=== PATIENT | male | born 1945 | race Caucasian/White ===

== ENCOUNTER 2018-07-25 11:22 | Inpatient (IN) | payer OTHER ==
[~2018-07-25] VITALS: Ht 175.3 cm; Wt 77.1 kg
--- NOTE | ~2018-07-25 | CON ---
[address] [address] CONSULTATION Name: ZOYA GUERRERO JR Room: [address] IN .R.#: [id number] Admission: 07/25/18 Attend Phys: George Wick Discharge: 07/26/18 Date of : 47 Report #: [id number] THIS REPORT FOR: //name// CC: Cali Greenberg DATE OF SERVICE: 07/26/2018 HISTORY OF PRESENT ILLNESS: This is a very pleasant 73-year-old male, with past medical history significant for gastroesophageal reflux disease who presents with nausea and vomiting. The patient reports that he had been suffering from an upper respiratory tract infection for the last several days and in order to control it, took a combination of Robitussin and Sudafed. The patient reports that following taking the medications, he began experiencing epigastric abdominal cramps followed by nausea and vomiting. The patient appears to have had 3-4 episodes of emesis prior to presentation to the hospital. The vomitus mostly consisted of food and ingested material with some bile. The patient denies noticing any blood in his vomit. Since his presentation to the hospital, he has not had any vomiting and his nausea has subsided. Additionally, the patient also reports that he has not passed any stools in the last 48 hours. The patient denies any symptoms at this time such as epigastric abdominal pain, nausea, vomiting, fevers, chills, difficulty swallowing or weight loss. PAST MEDICAL HISTORY: Significant for gastroesophageal reflux disease. PAST SURGICAL HISTORY: None. FAMILY HISTORY: There is no family history significant for esophageal, gastric or colorectal cancer. SOCIAL HISTORY: The patient denies smoking, alcohol or recreational drug use. REVIEW OF SYSTEMS: A comprehensive 10-point review of systems is negative except for what is mentioned here. PHYSICAL EXAMINATION: VITAL SIGNS: Temperature 36.2, pulse 69, respirations 18, blood pressure 124/82. HEENT: Pupils equal, round, reactive to light and accommodation. Mucous membranes are moist. There is no congestion. LUNGS: Clear to auscultation bilaterally. CARDIOVASCULAR: Rate and rhythm regular, S1, S2 present. ABDOMEN: Soft. There is no distention, guarding or rigidity. Bowel sounds are present. EXTREMITIES: Warm and well perfused. [place] [address] CONSULTATION Name: ZOYA GUERRERO JR Room: [address]#: [id number] Admission: 07/25/18 Attend Phys: George Wick Discharge: 07/26/18 Date of : 47 Report #: [id number] LABORATORY DATA: Hemoglobin 14.3, hematocrit 41.7, platelet count 221, WBC count 7.3. Sodium 140, potassium 4.4, chloride 105, bicarbonate 27, BUN 12, creatinine 1.1. Abdomen and pelvis CT demonstrates a 1.8 cm left renal cortical cyst. Lumbar degenerative facet joint arthropathy. ASSESSMENT AND PLAN: A pleasant 73-year-old male who is presenting with self-limited episode of nausea and vomiting following a 3-4 day course of upper respiratory tract infection. The patient's symptoms are completely resolved at this point and therefore, I will not seek any endoscopic evaluation. His symptoms may be related to medication or related to the upper respiratory tract infection itself. The patient will call us if his symptoms worsen. Otherwise, no further intervention is needed. By: [id number] Howell MD /nt
[2018-07-25 11:28] VITALS: BP 150/97
[2018-07-25 12:01] LABS: ABSOLUTE BASOPHILS 0.1 thou/uL (0.0-0.2); ABSOLUTE EOSINOPHILS 0.1 thou/uL (0.0-0.7); ABSOLUTE LYMPHOCYTES 1.2 thou/uL (0.8-5.3); ABSOLUTE MONOCYTES 0.5 thou/uL (0.0-1.2); ABSOLUTE NEUTROPHILS 5.4 thou/uL (1.6-8.1); BASOPHILS 0.8 %; HEMATOCRIT 43.3 % (42.0-52.0); HEMOGLOBIN 14.9 gm/dL (14.0-18.0); LYMPHOCYTES 16.1 %; MCH 30.9 pg (26.0-34.0); MCHC 34.4 g/dL (28.0-37.0); MCV 89.7 fL (80.0-100.0); MONOCYTES 6.5 %; MPV 8.4 fl. (7.2-11.1); NUCLEATED RBCS 0 /100WBC; PLATELET COUNT* 218 thou/uL (150-400); POLYS 75.6 %; RBC 4.83 mil/uL (4.50-6.00); RDW-CV 13.2 % (10.5-14.5); WBC 7.1 thou/uL (4.0-11.0)
[2018-07-25 12:14] LABS: ANION GAP 12 mmol/L (7-16); BUN 13 mg/dL (7-18); CALCIUM 9.2 mg/dL (8.5-10.1); CHLORIDE 100 mmol/L (98-107); CO2 26 mmol/L (21-32); GLUCOSE 131 mg/dL (70-99); POTASSIUM 3.8 mmol/L (3.5-5.1); SODIUM 138 mmol/L (136-145)
[2018-07-25 12:21] LABS: ALBUMIN 3.3 g/dL (3.4-5.0); ALKALINE PHOSPHATASE 76 U/L (46-116); LIPASE 84 U/L (73-393); SGOT 15 U/L (15-37); SGPT 19 U/L (30-65); TOTAL BILIRUBIN 0.7 mg/dL (<0.1-1.0); TOTAL PROTEIN 7.5 g/dL (6.4-8.2); TROPONIN-I LEVEL <0.06 ng/mL (<0.06)
[2018-07-25 12:43] LABS: URINE BILIRUBIN NEGATIVE (Negative); URINE BLOOD NEGATIVE (Negative); URINE CLARITY CLEAR; URINE COLOR YELLOW; URINE GLUCOSE-RANDOM NEGATIVE (Negative); URINE KETONES TRACE (Negative); URINE LEUKOCYTES-REFLEX NEGATIVE (Negative); URINE NITRITE-REFLEX NEGATIVE (Negative); URINE PROTEIN NEGATIVE (Negative); URINE SPECIFIC GRAVITY 1.015 (1.005-1.030); URINE UROBILINOGEN 0.2 E.U./dl (0.2-1.0)
[2018-07-25 14:40] VITALS: BP 147/95
--- NOTE | 2018-07-25 15:00 | NUR ---
PATIENT ARRIVED TO UNIT AT 1435. ALERT AND ORIENTED X 4. VITAL SIGNS STABLE ON ROOM AIR. UP AD SHAHZAD. AFEBRILE. IV PATENT AND SALINE LOCKED. ORIENTED PATIENT TO ROOM. CALL LIGHT WITHIN REACH. NURSING WILL CONTINUE TO MONITOR.
[2018-07-25 15:01] VITALS: BP 138/85
--- NOTE | 2018-07-25 17:37 | NUR ---
PATIENT ALERT AND ORIENTED X 4. VITAL SIGNS STABLE ON ROOM AIR. AFEBRILE. UP AD SHAHZAD IN ROOM. IV PATENT WITH FLUIDS INFUSING. DENIES PAIN. NAUSEA BEING MANAGED WITH IV MEDICATION. HOURLY ROUNDS MAINTAINED SINCE PATIENT ARRIVED TO UNIT. CALL LIGHT WITHIN REACH. NURSING WILL CONTINUE TO MONITOR.
[2018-07-25 20:30] VITALS: BP 136/84
[2018-07-26 04:08] LABS: ABSOLUTE EOSINOPHILS 0.2 thou/uL (0.0-0.7); ABSOLUTE LYMPHOCYTES 1.5 thou/uL (0.8-5.3); ABSOLUTE MONOCYTES 0.8 thou/uL (0.0-1.2); ABSOLUTE NEUTROPHILS 4.7 thou/uL (1.6-8.1); BASOPHILS 0.7 %; EOSINOPHILS 2.9 %; HEMATOCRIT 41.7 % (42.0-52.0); HEMOGLOBIN 14.3 gm/dL (14.0-18.0); MCH 30.9 pg (26.0-34.0); MCHC 34.4 g/dL (28.0-37.0); MCV 89.8 fL (80.0-100.0); MONOCYTES 10.5 %; MPV 8.6 fl. (7.2-11.1); NUCLEATED RBCS 0 /100WBC; PLATELET COUNT* 221 thou/uL (150-400); POLYS 64.9 %; RBC 4.64 mil/uL (4.50-6.00); RDW-CV 13.2 % (10.5-14.5); WBC 7.3 thou/uL (4.0-11.0)
[2018-07-26 04:23] LABS: CALCIUM 8.6 mg/dL (8.5-10.1); CREATININE 1.1 mg/dL (0.6-1.3); POTASSIUM 4.4 mmol/L (3.5-5.1)
--- NOTE | 2018-07-26 05:43 | NUR ---
ALERT AND ORIENTED X4. UP AD SHAHZAD IN ROOM. DENIED NEED FOR PAIN MEDICATION. NAUSEA MEDICATION GIVEN X2 WITH SOME RELIEF. REMAINS ON CLEAR LIQUIDS. CALL LIGHT WITHIN REACH.
[2018-07-26 07:30] LABS: INFLUENZA A ANTIGEN None Detected (None Detect); INFLUENZA B ANTIGEN None Detected (None Detect)
[2018-07-26 08:00] VITALS: BP 124/82
--- NOTE | 2018-07-26 11:08 | EKG ---
[place] [address] ELECTROCARDIOGRAM REPORT Name: ZOYA GUERRERO JR Room: [address] ADM IN M.R.#: [id number] Admission: 07/25/18 Attend Phys: George Wick Discharge: Date of : 47 Report #: [id number] THIS REPORT FOR: //name// [facility] ED Test Date: 2018-07-25 Test Time: 11:53:49 Pat Name: ZOYA GUERRERO Department: Room: [facility] Gender: M Slasher Tender: Brandon SABILLON : 1945 Requested By: Benjy Ventura Order Number: [id number] MD: Theo Barkley Measurements Intervals [place] Rate: 82 P: 59 [place]: 161 QRS: -33 QRSD: 85 T: 52 QT: 384 QTc: 449 Interpretive Statements Sinus rhythm Left axis deviation No previous ECG available for comparison Electronically Signed On 07-26-2018 11:08:39 CHILD CARE EDUCATION COORDINATOR by Theo Barkley [email or web address] <ELECTRONICALLY SIGNED> By: Theo Barkley MD, [facility] 07/26/18 1108 1153 1153 Theo Barkley MD, FAC /EPI
[2018-07-26] MEDS ORDERED: CIPRO500 MG PO (11:55)
[2018-07-26] MEDS ORDERED: FLAGYL500 M1 PO (11:55)
[2018-07-26] MEDS ORDERED: TESSALON PERLE100 MG PO (13:22)
[2018-07-26 13:29] VITALS: BP 124/82
== END 2018-07-26 14:00 | disposition home or self-care (01) | DRG 372 ==
LOC: M.ERS 11:22 → M.TBA-ER 13:28 → M.ORTHSURG 13:28
PROVIDERS: Family Medicine; ADMIT Internal Medicine
DX: A04.9 Bacterial intestinal infection, unspecified (principal); E44.1 Mild protein-calorie malnutrition; R11.2 Nausea with vomiting, unspecified; E86.0 Dehydration; K21.9 Gastro-esophageal reflux disease without esophagitis; N28.9 Disorder of kidney and ureter, unspecified; Z88.1 Allergy status to other antibiotic agents; Z88.8 Allergy status to other drugs, medicaments and biological substances; Z68.25 Body mass index [BMI] 25.0-25.9, adult

== ENCOUNTER 2021-05-13 23:56 | Emergency (ER) | payer OTHER ==
[~2021-05-13] VITALS: Ht 175.3 cm; Wt 72.6 kg
[~2021-05-13 23:56] MED LIST: CIPRO500 MG PO; FLAGYL500 M1 PO; TESSALON PERLE100 MG PO
[2021-05-14] MEDS ORDERED: PREDNISONE 20 M20 MG PO (00:14)
[2021-05-14] MEDS ORDERED: DORYX MPC120 MG PO (00:14)
[2021-05-14 00:49] LABS: ABSOLUTE EOSINOPHILS 0.2 thou/uL (0.0-0.7); ABSOLUTE LYMPHOCYTES 1.9 thou/uL (0.8-5.3); ABSOLUTE MONOCYTES 0.5 thou/uL (0.0-1.2); ABSOLUTE NEUTROPHILS 2.6 thou/uL (1.6-8.1); BASOPHILS 0.7 %; EOSINOPHILS 3.4 %; HEMATOCRIT 47.5 % (42.0-52.0); HEMOGLOBIN 16.5 gm/dL (14.0-18.0); LYMPHOCYTES 36.2 %; MCH 31.7 pg (26.0-34.0); MCHC 34.7 g/dL (28.0-37.0); MCV 91.4 fL (80.0-100.0); MONOCYTES 9.7 %; MPV 8.3 fl. (7.2-11.1); NUCLEATED RBCS 0 /100WBC; PLATELET COUNT* 191 thou/uL (150-400); RDW-CV 14.5 % (10.5-14.5); WBC 5.3 thou/uL (4.0-11.0)
[2021-05-14 00:56] LABS: CREATININE 1.2 mg/dL (0.6-1.3); POTASSIUM 3.8 mmol/L (3.5-5.1)
[2021-05-14 01:00] LABS: ALBUMIN 3.5 g/dL (3.4-5.0); MAGNESIUM 1.9 mg/dL (1.8-2.4); TOTAL BILIRUBIN 1.1 mg/dL (<0.1-1.0); TOTAL PROTEIN 6.9 g/dL (6.4-8.2)
[2021-05-14 02:54] LABS: URINE BILIRUBIN NEGATIVE (Negative); URINE BLOOD NEGATIVE (Negative); URINE CLARITY CLEAR; URINE COLOR YELLOW; URINE GLUCOSE-RANDOM NEGATIVE (Negative); URINE KETONES 1+ (Negative); URINE LEUKOCYTES-REFLEX NEGATIVE (Negative); URINE NITRITE-REFLEX NEGATIVE (Negative); URINE PROTEIN NEGATIVE (Negative); URINE UROBILINOGEN 0.2 E.U./dl (0.2-1.0)
[2021-05-14 04:25] VITALS: BP 157/71
[2021-05-14] MEDS ORDERED: ZOFRAN ODT4 MG PO (04:51)
--- NOTE | 2021-05-14 12:21 | EKG ---
[place] [address] ELECTROCARDIOGRAM REPORT Name: ZOYA GUERRERO JR Room: [facility]#: [id number] Admission: 05/13/21 Attend Phys: Discharge: 05/14/21 Date of : 47 Date of Service: 05/14/21 0029 Report #: [id number] THIS REPORT FOR: //name// [facility] ED Test Date: 2021-05-14 Test Time: 00:29:17 Pat Name: ZOYA GUERRERO Department: Room: Gender: Practice Administrator: [place] : 1945 Requested By: Karina Adler Order Number: [id number] MD: Cali Singh Measurements Intervals [place] Rate: 52 P: 50 MS: 134 QRS: -8 QRSD: 92 T: 86 QT: 403 QTc: 375 Interpretive Statements Sinus rhythm Borderline low voltage, extremity leads Abnormal R-wave progression, early transition Baseline wander in lead(s) V3 Compared to ECG 07/25/2018 11:53:49 Left-axis deviation persists Electronically Signed On 05-14-2021 12:21:13 CDT by Cali Singh [email or web address] <ELECTRONICALLY SIGNED> By: Cali Singh MD, FAC 05/14/21 1221 0029 0029 Cali Singh MD, FAC /EPI
== END 2021-05-14 04:26 | disposition home or self-care (01) ==
LOC: M.ERS 23:56
PROVIDERS: Emergency Medicine
DX: K29.70 Gastritis, unspecified, without bleeding (principal); R42 Dizziness and giddiness; K21.9 Gastro-esophageal reflux disease without esophagitis; Z90.49 Acquired absence of other specified parts of digestive tract; Z79.899 Other long term (current) drug therapy; Z88.1 Allergy status to other antibiotic agents

== ENCOUNTER 2021-05-17 01:40 | Observation (INO) | payer OTHER ==
[~2021-05-17] VITALS: Ht 175.3 cm; Wt 72.6 kg
[~2021-05-17 01:40] MED LIST changes: +DORYX MPC120 MG PO; +PREDNISONE 20 M20 MG PO; +ZOFRAN ODT4 MG PO
[2021-05-17 02:00] VITALS: BP 112/101
[2021-05-17] MEDS ORDERED: CYMBALTA30 MG PO (02:03)
[2021-05-17 02:13] LABS: ABSOLUTE BASOPHILS 0.1 thou/uL (0.0-0.2); ABSOLUTE EOSINOPHILS 0.4 thou/uL (0.0-0.7); ABSOLUTE LYMPHOCYTES 1.8 thou/uL (0.8-5.3); ABSOLUTE MONOCYTES 0.5 thou/uL (0.0-1.2); ABSOLUTE NEUTROPHILS 2.9 thou/uL (1.6-8.1); BASOPHILS 1.1 %; EOSINOPHILS 6.2 %; HEMATOCRIT 47.6 % (42.0-52.0); HEMOGLOBIN 16.3 gm/dL (14.0-18.0); LYMPHOCYTES 32.1 %; MCH 31.6 pg (26.0-34.0); MCHC 34.3 g/dL (28.0-37.0); MCV 92.2 fL (80.0-100.0); MONOCYTES 9.3 %; NUCLEATED RBCS 0 /100WBC; PLATELET COUNT* 213 thou/uL (150-400); POLYS 51.3 %; RBC 5.17 mil/uL (4.50-6.00); RDW-CV 14.1 % (10.5-14.5); WBC 5.7 thou/uL (4.0-11.0)
[2021-05-17 02:22] LABS: CALCIUM 9.1 mg/dL (8.5-10.1); CREATININE 1.3 mg/dL (0.6-1.3)
[2021-05-17 13:45] VITALS: BP 142/75
--- NOTE | 2021-05-17 18:20 | NUR ---
RECEIVED REPORT FROM [facility]. PT ARRIVED ON UNIT AROUND 1347. IV INTACT. MED/SURG STATUS. ADMIT DONE. VS CHARTED. NO PAIN THIS SHIFT. AT BEDSIDE. HOURLY ROUNDING PERFORMED. CALL LIGHT WITH IN REACH. WILL CONTINUE TO MONITOR. POSSIBLE D/C.
[2021-05-17 19:20] VITALS: BP 141/77
--- NOTE | 2021-05-17 22:17 | NUR ---
ASSUMED CARE OF PT AT 1900. PT IS ALERT AND ORIENTED. VSS. PERRLA. NO COMPLAINTS OF PAIN. PT IS MED SURG STATUS. PT IS SLEEPING COMFORTABLY IN BED. RESPIRATIONS ARE EVEN AND NONLABORED. WILL CONTINUE TO MONITOR PT.
[2021-05-18 08:41] VITALS: BP 143/85
[2021-05-18 13:15] VITALS: BP 143/85
--- NOTE | 2021-05-18 13:19 | NUR ---
ASSUMED PT CARE AT 0730. PT IS PLEASANTLY A&O X4. ASSESSMENT COMPLETED. VSS. WITH PT. PT VERBALIZING THAT HE DOESNT WANT TO BE HERE. DR MILIAN MET WITH PT AND NEW ORDER TO DISCAHRGE PT TO HOME WITH SPOUSE AND TO FOLLOW UP WITH PCP AND GI APPT ON 05/21/21. DISCHARGE ORDERS REVIEWED WITH PT AND BELONGINGS WITH PT. HERE TO TRANSPORT PT TO HOME AND BOTH VERBALIZE UNDERSTANDING OF DISCHARGE ORDERS. HEART MONITOR REMOVED AND IV DC'D. STAFF TO TRANSPORT VIA WC TO DISCHARGE WITH SPOUSE VIA CAR AT APPROX.1345. BELONGINGS WITH PT.
[2021-05-18 14:23] LABS: ALBUMIN 3.6 g/dL (3.4-5.0); DIRECT BILIRUBIN 0.2 mg/dL (<0.1-0.3); TOTAL BILIRUBIN 1.1 mg/dL (<0.1-1.0); TOTAL PROTEIN 6.7 g/dL (6.4-8.2)
== END 2021-05-18 13:28 | disposition home or self-care (01) ==
LOC: M.ERS 01:40 → M.TBA-ER 03:17 → M.ORTHSURG 13:50
PROVIDERS: Emergency Medicine; Internal Medicine Gastroenterology; ADMIT Internal Medicine; ATTEND Internal Medicine
DX: R63.0 Anorexia (principal); E87.6 Hypokalemia; K29.70 Gastritis, unspecified, without bleeding; Z20.822 Contact with and (suspected) exposure to COVID-19; R11.2 Nausea with vomiting, unspecified; R33.9 Retention of urine, unspecified; Z23 Encounter for immunization; Y92.89 Other specified places as the place of occurrence of the external cause